=== PATIENT | male | born 1995 | race Caucasian/White ===

== ENCOUNTER 2018-06-08 13:15 | Emergency (ER) | payer MEDICAID ==
[~2018-06-08] VITALS: Ht 182.9 cm; Wt 100.0 kg
[2018-06-08] MEDS ORDERED: IBUPROFEN 200MG TABLET ONE (13:20)
[2018-06-08 13:31] VITALS: BP 126/72
[2018-06-08] MEDS ORDERED: IBUPROFEN 600MG TABLET PO ONE (13:45)
== END 2018-06-08 23:00 | disposition left against medical advice (07) ==
LOC: ER 13:15
DX: T25.322A Burn of third degree of left foot, initial encounter (principal); T25.321A Burn of third degree of right foot, initial encounter; X58.XXXA Exposure to other specified factors, initial encounter; Y93.67 Activity, basketball; Y92.89 Other specified places as the place of occurrence of the external cause; Y99.8 Other external cause status
CPT/HCPCS: 99282